=== PATIENT | female | born 1980 | race Caucasian/White ===

== ENCOUNTER 2016-12-03 18:02 | Emergency (ER) | payer BC, OTHER ==
--- NOTE | 2016-12-03 19:13 | UC ---
Back Pain HPI - HPI Summary HPI Summary: 36 yo female with intermittent right sided back pain x 1 1/2 days no f/c no uti symptoms pt is - History of Current Complaint Chief Complaint: UCGU Stated Complaint: LOWER BACK PAIN Time Seen by Provider: 12/03/16 19:03 Hx Obtained From: Patient Onset/Duration: Gradual Onset, Lasting Minutes Timing: Intermittent Severity Initially: Mild Severity Currently: Mild Pain Intensity: 3 Pain Scale Used: 0-10 Numeric Back Pain: Is Discrete @ - right CVA, Radiates To - flank Character: Unable to Describe Alleviating: Rest Associated Signs And Symptoms: Positive: Flank Pain - Allergies/Home Medications Allergies/Adverse Reactions: Allergies Allergy/AdvReac Type Severity Reaction Status Date / Time No Known Allergies Allergy Verified 12/03/16 18:35 Home Medications: Home Medications Multivit-Min W/Fe-FA [ and Iron] 1 tab PO DAILY 12/03/16 [ History Confirmed 12/03/16] PMH/Surg Hx/FS Hx/Imm Hx Previously Healthy: Yes - Surgical History Surgical History: None Surgery Procedure, Year, and Place: left knee/close reduction of radial ulna right arm - Family History Known Family History: Positive: Cardiac Disease, Other - breast/colorectal cancer, alzheimer's - Social History Alcohol Use: None Substance Use Type: None Smoking Status (MU): Never Smoked Tobacco Review of Systems Constitutional: Negative Skin: Negative Eyes: Negative ENT: Negative Respiratory: Negative Cardiovascular: Negative Gastrointestinal: Negative Genitourinary: Negative Motor: Negative Neurovascular: Negative Musculoskeletal: Myalgia Neurological: Negative Psychological: Negative All Other Systems Reviewed And Are Negative: Yes Physical Exam Triage Information Reviewed: Yes Appearance: Well-Appearing, No Pain Distress, Well-Nourished Vital Signs: Initial Vital Signs Temp 98 F 12/03/16 18:02 Pulse 70 12/03/16 18:02 Resp 16 12/03/16 18:02 Pulse Ox 100 12/03/16 18:02 Eyes: Positive: Conjunctiva Clear ENT: Positive: Hearing grossly normal. Negative: Nasal congestion, Nasal drainage, Trismus, Muffled/hoarse voice Neck: Positive: Supple, Nontender Respiratory: Positive: Lungs clear, Normal breath sounds, No respiratory distress, No accessory muscle use Cardiovascular: Positive: RRR, No Murmur Abdomen Description: Positive: Nontender, Other: - gravid uterus. Negative: CVA Tenderness (R), CVA Tenderness (L) Musculoskeletal: Positive: ROM Intact, No Edema Neurological: Positive: Alert Psychological Exam: Normal Skin Exam: Normal Back Pain Course/Dx - Differential Dx/Diagnosis Provider Diagnoses: back pain - suspect musculo-skeletal Discharge - Discharge Plan Condition: Stable Disposition: HOME Patient Education Materials: Back Pain (ED) Referrals: No Primary Care Phys,NOPCP [Primary Care Provider] - Additional Instructions: urine culture pending recheck for worsening symptoms tylenol for pain
== END 2016-12-03 19:17 | disposition home or self-care (01) ==
LOC: UCEAST 18:02
DX: O26.899 Other specified pregnancy related conditions, unspecified trimester (principal); M54.9 Dorsalgia, unspecified; O09.519 Supervision of elderly primigravida, unspecified trimester; Z3A.00 Weeks of gestation of pregnancy not specified
CPT/HCPCS: 81003; 87086; 99211; G0463

== ENCOUNTER 2017-04-23 17:24 | Inpatient (IN) | payer OTHER ==
[2017-04-23 20:48] LABS: Hematocrit 38 % (35-47); Hemoglobin 13.2 g/dl (12.0-16.0); Mean Corpuscular HGB Conc 35 g/dl (31-36); Mean Corpuscular Hemoglobin 33 pg (27-31); Mean Corpuscular Volume 93 fL (80-97); Mean Platelet Volume 10 um3 (7.4-10.4); Red Blood Count 4.04 10^6/ul (4.0-5.4); Red Cell Distribution Width 12 % (10.5-15); White Blood Count 14.2 10^3/ul (3.5-10.8)
[2017-04-23] MEDS ORDERED: fentaNYL* 50 MCG/ML 2 ML VIAL (100 MCG VIAL) ONE (21:36)
[2017-04-23] MEDS ORDERED: OBEPIDURAL* 250 ML ONE (21:36)
[2017-04-23] MEDS ORDERED: Phenylephrine IV* 40 MCG/ML 10 ML SYRINGE IV PUSH PRN ×2 (22:12)
[2017-04-23] MEDS ORDERED: Sodium Citrate/Citric Acid* 15 ML UDC PO PRN (22:12)
[2017-04-23] MEDS ORDERED: Famotidine TAB* 20 MG PO PRN (22:12)
[2017-04-23] MEDS ORDERED: OBEPIDURAL* 250 ML EPIDURAL SCH (23:00)
[2017-04-24] MEDS ORDERED: Oxytocin in LR* 20 UNITS/1,000 ML BAG IVPB ONE (04:03)
[2017-04-24] MEDS ORDERED: Acetaminophen TAB* 325 MG PO PRN (07:24)
[2017-04-24] MEDS ORDERED: Glycerin ADULT SUPP PR PRN (07:24)
[2017-04-24] MEDS ORDERED: Simethicone TAB* 80 MG TAB.CHEW PO SCH (08:30)
[2017-04-24] MEDS: Ibuprofen TAB* 600 MG PO PRN ×2 (09:34→18:51)
[2017-04-24] MEDS: Witch Hazel PAD* JAR TOPICAL PRN (09:36)
[2017-04-24] MEDS: Dibucaine 1% 28.35 GM TUBE PR PRN (09:36)
[2017-04-24] MEDS: Docusate CAP* 100 MG PO SCH ×3 (09:36→20:20)
[2017-04-25] MEDS: Ibuprofen TAB* 600 MG PO PRN ×3 (02:22→18:03)
[2017-04-25 08:16] LABS: Hematocrit 30 % (35-47); Hemoglobin 10.3 g/dl (12.0-16.0); Mean Corpuscular HGB Conc 35 g/dl (31-36); Mean Corpuscular Hemoglobin 32 pg (27-31); Mean Corpuscular Volume 94 fL (80-97); Mean Platelet Volume 9 um3 (7.4-10.4); Red Cell Distribution Width 12 % (10.5-15); White Blood Count 15.7 10^3/ul (3.5-10.8)
[2017-04-25] MEDS ORDERED: Ferrous Gluconate TAB* 324 MG TAB PO SCH (09:00)
[2017-04-25] MEDS: Docusate CAP* 100 MG PO SCH ×4 (12:09→21:47)
[2017-04-26] MEDS: Ibuprofen TAB* 600 MG PO PRN ×2 (06:18→13:46)
[2017-04-26 08:26] VITALS: BP 110/60
[2017-04-26] MEDS: Docusate CAP* 100 MG PO SCH ×2 (08:29→13:47)
[2017-04-26] MEDS: Witch Hazel PAD* JAR TOPICAL PRN (11:26)
[2017-04-26] MEDS: Dibucaine 1% 28.35 GM TUBE PR PRN (11:27)
== END 2017-04-26 15:22 | disposition home or self-care (01) | DRG 775 ==
LOC: MCHOBOUT 17:24 → MCHOB 18:32
PROVIDERS: ADMIT Obstetrics & Gynecology; ATTEND Obstetrics & Gynecology
PROC: 10E0XZZ Delivery of Products of Conception, External Approach (ICD-10-PCS; principal; 2017-04-24)
PROC: 0KQM0ZZ Repair Perineum Muscle, Open Approach (ICD-10-PCS; 2017-04-24)
PROC: 10907ZC Drainage of Amniotic Fluid, Therapeutic from Products of Conception, Via Natural or Artificial Opening (ICD-10-PCS; 2017-04-24)
DX: O70.1 Second degree perineal laceration during delivery (principal); Z37.0 Single live birth; Z3A.39 39 weeks gestation of pregnancy
CPT/HCPCS: 36415; 85025; 86850; 86900; 86901; A9270-GY; J3010

== ENCOUNTER 2017-09-06 13:20 | Emergency (ER) | payer BC, OTHER ==
[2017-09-06 13:32] VITALS: BP 103/65
--- NOTE | 2017-09-06 17:37 | UC ---
Leonardo Ferris Stephanie, scribed for Joseph Bella MD on 09/06/17 at 1344 . Eye Complaint HPI - HPI Summary HPI Summary: The pt is a 37 y/o F presenting to with c/o rash to the upper L eye lid since last night. Symptoms include redness, itchiness and pain over the eyelid. The pt states it looks and feels like a shingles rash she had before. She denies eye involvement; no pain, irritation or erythema of the eye. - History of Current Complaint Chief Complaint: UCEye Stated Complaint: EYE ISSUE Time Seen by Provider: 09/06/17 13:35 Hx Obtained From: Patient Hx Last Menstrual Period: Jun 2016 ?: No Onset/Duration: Sudden Onset, Lasting Days - 1, Still Present Timing: Constant Severity Currently: Mild Pain Intensity: 3 Pain Scale Used: 0-10 Numeric Location of Injury: Eye Lid (upper) - L Aggravating Factor(s): Nothing Alleviating Factor(s): Nothing - Allergies/Home Medications Allergies/Adverse Reactions: Allergies Allergy/AdvReac Type Severity Reaction Status Date / Time No Known Allergies Allergy Verified 09/06/17 13:32 PMH/Surg Hx/FS Hx/Imm Hx Previously Healthy: No - Shingles - Surgical History Surgical History: Yes Surgery Procedure, Year, and Place: left knee/close reduction of radial ulna right arm - Family History Known Family History: Positive: Cardiac Disease, Other - breast/colorectal cancer, alzheimer's - Social History Occupation: Employed Part-time Lives: Dormitory/Roommates Alcohol Use: Occasionally Substance Use Type: None Smoking Status (MU): Never Smoked Tobacco Have You Smoked in the Last Year: No - Immunization History Most Recent Influenza Vaccination: 01/2017 Most Recent Pneumonia Vaccination: never Review of Systems Constitutional: Negative Skin: Negative Eyes: Other - rash over eyelid with pain and itching ENT: Negative Respiratory: Negative Cardiovascular: Negative Gastrointestinal: Negative Genitourinary: Negative Motor: Negative Neurovascular: Negative Musculoskeletal: Negative Neurological: Negative Psychological: Negative Is Patient Immunocompromised?: No All Other Systems Reviewed And Are Negative: Yes Physical Exam - Summary Physical Exam Summary: VITAL SIGNS: Reviewed. GENERAL: Patient is a well developed and nourished F who is lying comfortable in the stretcher. Patient is not in any acute respiratory distress. HEAD AND FACE: Normocephalic EYES: PERRLA, EOMI x 2., rash in L upper eyelid, no eye involvement, eye irritation or eye pain. EARS: Hearing grossly intact. MOUTH: Oropharynx within normal limits. NECK: Supple, trachea is midline, no adenopathy, no JVD, no carotid bruit. CHEST: Symmetric, no tenderness at palpation LUNGS: Clear to auscultation bilaterally. No wheezing or crackles. CVS: Regular rate and rhythm, S1 and S2 present, no murmurs or gallops appreciated. ABDOMEN: Soft, non-tender. Bowel sounds are normal. No abdominal abnormal pulsations. EXTREMITIES: Full ROM in all major joints, no edema, no cyanosis or clubbing. NEURO: Alert and oriented x 3. No acute neurological deficits. Speech is normal and follows commands. SKIN: Dry and warm Triage Information Reviewed: Yes Vital Signs: Initial Vital Signs Temp 97.3 F 09/06/17 13:29 Pulse 59 09/06/17 13:29 Resp 18 09/06/17 13:29 BP 103/65 09/06/17 13:29 Pulse Ox 99 09/06/17 13:29 Vital Signs Reviewed: Yes Eye Complaint Course/Dx - Course Course Of Treatment: The pt is a 37 y/o F presenting to with c/o rash to the upper L eye lid since last night. Symptoms include redness, itchiness and pain over the eyelid. The pt states it looks and feels like a shingles rash she had before. She denies eye involvement; no pain, irritation or erythema of the eye. Patient was instructed to return to the urgent care or go to ER immediately if any of the symptoms return or worsens. Plan of care was discussed with the patient, and patient understands and agrees. All questions were answered to patient satisfaction. There were no further complaints or concerns. The pt is hemodynamically stable, alert and oriented x3. - Differential Dx/Diagnosis Provider Diagnoses: shingles Discharge - Sign-Out/Discharge Documenting (check all that apply): Discharge - Discharge Plan Condition: Stable Disposition: HOME Referrals: [facility] [place] [facility] [Outside] - 2 Days Additional Instructions: RETURN TO URGENT CARE FOR ANY WORSENING OR NEW SYMPTOMS. The documentation as recorded by the Leonardo pickett Stephanie accurately reflects the service I personally performed and the decisions made by Shayne iglesias Walter, MD.
== END 2017-09-06 13:49 | disposition home or self-care (01) ==
LOC: UCEAST 13:20
DX: B02.39 Other herpes zoster eye disease (principal)
CPT/HCPCS: 99212; G0463

== ENCOUNTER 2017-09-28 09:15 | Emergency (ER) | payer BC ==
[2017-09-28] MEDS ORDERED: diPHENhydraMINE IV* 50 MG/ML 1 ml VIAL (BENADRYL) IV ONE (10:24)
--- NOTE | 2017-09-28 10:24 | UC ---
Headache HPI - HPI Summary HPI Summary: PATIENT PRESENTS WITH RIGHT SIDED, THROBBING HEADACHE GETTING GRADUALLY WORSE OVER THE PAST SEVERAL DAYS. HAS HAD URI SYMPTOMS INCLUDING COUGH, SORE THROAT, NASAL CONGESTION, DRAINAGE AND FATIGUE FOR ABOUT A WEEK AND A HALF. STATES SHE FEELS THE SYMPTOMS ARE IMPROVING BUT THE HEADACHE IS PERSISTENT. SHE HAS HAD SOME SORENESS IN HER NECK AND SENSITIVITY TO LIGHT. SHE DENIES BEING A HEADACHE PERSON AND DOES NOT GET MIGRAINES. SHE HAS AN INFANT AT HOME AND HER IS AWAY ON A BUSINESS TRIP SO SHE REPORTS NOT SLEEPING VERY MUCH. IS TRYING TO STAY WELL-HYDRATED AND IS ALSO BREAST-FEEDING. - History Of Current Complaint Chief Complaint: UCHeadache Stated Complaint: HEADACHE Time Seen by Provider: 09/28/17 10:04 Hx Obtained From: Patient Hx Last Menstrual Period: IUD Onset/Duration: Gradual Onset, Lasting Days, Still Present Onset Of Symptoms: Gradual, Still Present Initially Headache Was: Moderate Currently Pain Is: Moderate Pain Intensity: 6 Pain Scale Used: 0-10 Numeric Timing: Constant Character: Throbbing Location of Headache: Temporal Aggravating Factor(s): Bright Lights Allevating Factor(s): Nothing Associated Signs And Symptoms: Positive: Nausea, Sinus Pressure, Neck Pain. Negative: Dizziness, Seizure, Vomiting, Neck Stiffness, Decreased LOC, Visual Changes - Allergies/Home Medications Allergies/Adverse Reactions: Allergies Allergy/AdvReac Type Severity Reaction Status Date / Time No Known Allergies Allergy Verified 09/28/17 09:31 Home Medications: Home Medications Acetaminophen [Acetaminophen Extra Strength] 500 mg PO Q6HR 09/28/17 [History Confirmed 09/28/17] PMH/Surg Hx/FS Hx/Imm Hx Previously Healthy: Yes - Surgical History Surgical History: Yes Surgery Procedure, Year, and Place: left knee surgery. radial/ulna right arm - Family History Known Family History: Positive: Cardiac Disease, Other - breast/colorectal cancer, alzheimer's - Social History Alcohol Use: Occasionally Substance Use Type: None Smoking Status (MU): Never Smoked Tobacco Have You Smoked in the Last Year: No - Immunization History Most Recent Influenza Vaccination: 01/2017 Most Recent Pneumonia Vaccination: never Review of Systems Constitutional: Fatigue Eyes: Photophobia ENT: Sore Throat, Ear Ache, Nasal Discharge, Sinus Congestion Respiratory: Cough Cardiovascular: Negative Gastrointestinal: Nausea Neurological: Headache All Other Systems Reviewed And Are Negative: Yes Physical Exam Triage Information Reviewed: Yes Appearance: Well-Nourished, Pain Distress - mild Vital Signs: Initial Vital Signs Temp 97.7 F 09/28/17 09:33 Pulse 82 09/28/17 09:33 Resp 16 09/28/17 09:33 BP 111/84 09/28/17 09:33 Pulse Ox 98 09/28/17 09:33 Vital Signs Reviewed: Yes Eyes: Positive: Conjunctiva Clear, Other: - PERRL, EOMI ENT: Positive: Hearing grossly normal, Pharynx normal, TMs normal Neck: Positive: Supple, Nontender, No Lymphadenopathy Respiratory Exam: Normal Cardiovascular Exam: Normal Abdomen Description: Positive: Soft Musculoskeletal: Positive: No Edema Neurological: Positive: Alert, Other: - NO SIGNS OF MENINGISMUS Psychological: Positive: Age Appropriate Behavior Skin: Negative: rashes Re-Evaluation - Re-Evaluation First Eval Re-Evaluation Time: 11:45 - FEELS IMPROVED AFTER 1L NS, TORADOL AND DIPHENHYDRAMINE. OKAY FOR D/C Change: Improved Headache Course/Dx - Differential Dx/Diagnosis Provider Diagnoses: HEADACHE, NOS Discharge - Sign-Out/Discharge Documenting (check all that apply): Discharge/Admit/Transfer - Discharge Plan Condition: Stable Disposition: HOME Prescriptions: Ondansetron ODT TAB* [Zofran Odt TAB*] 4 mg PO Q6H PRN #20 tab.odt PRN Reason: Nausea/Vomiting Patient Education Materials: Tension Headache (ED) Referrals: No Primary Care Phys,NOPCP [Primary Care Provider] - Additional Instructions: YOU HAD SLIGHT IMPROVEMENT IN YOUR SYMPTOMS AFTER 1 L OF FLUIDS, 30 MG OF TORADOL AND 50 MG OF BENADRYL. YOUR HEADACHE IS LIKELY DUE TO A COMBINATION OF FACTORS INCLUDING LACK OF SLEEP, STRESS, URI/SINUS SYMPTOMS AND RELATIVE DEHYDRATION. PUSH FLUIDS, TRY TO REST MUCH POSSIBLE. OKAY TO TAKE OVER- THE-COUNTER IBUPROFEN OR NAPROXEN FOR DISCOMFORT AND 50 MG OF BENADRYL AT NIGHT. TRY [id number] DECONGESTANTS WITH PSEUDOEPHEDRINE OR PHENYLEPHRINE WHICH MAY RELIEVE SOME OF THE SINUS PRESSURE. GO TO THE [facility] [place] ED WITHOUT FAIL IF YOU DEVELOP WORSENING PAIN, VISUAL DISTURBANCES , NAUSEA/VOMITING OR ANY OTHER CONCERNING SYMPTOMS. IBUPROFEN MAX DOSE: 600MG (3 TABS) EVERY 6 HRS OR 800MG (4 TABS) EVERY 8 HRS OR NAPROXEN MAX DOSE: 440MG (2 TABS) EVERY 12 HRS TYLENOL MAX DOSE: 1000MG (2 EXTRA STRENGTH TABS) EVERY 8 HRS OR 650MG (2 REGULAR TABS) EVERY 6 HRS CALL THE NUMBER BELOW FOR ASSISTANCE IN ESTABLISHING WITH A PCP An additional resource available to assist in finding the appropriate physician for your health care needs is the [facility] ([facility]). You may contact them by calling [phone]. - Billing Disposition and Condition Condition: STABLE Disposition: HOME
[2017-09-28] MEDS ORDERED: Ketorolac INJ* 30 MG/ML 1 ML VIAL IV PUSH ONE (10:25)
[2017-09-28] MEDS ORDERED: NS 0.9% 1000 ML* 1,000 ML IV SCH (10:30)
[2017-09-28 11:52] VITALS: BP 103/69
== END 2017-09-28 12:05 | disposition home or self-care (01) ==
LOC: UCEAST 09:15
DX: R51 Headache (principal); R11.0 Nausea; J34.89 Other specified disorders of nose and nasal sinuses; M54.2 Cervicalgia; R53.83 Other fatigue; J02.9 Acute pharyngitis, unspecified; H92.09 Otalgia, unspecified ear; R05 Cough
CPT/HCPCS: 96361; 96374; 96375; 99212; G0463; J1200; J1885